=== PATIENT | female | born 1950 | race Caucasian/White ===

== ENCOUNTER 2016-11-06 08:18 | Day surgery (SDC) | payer MEDICARE ==
[~2016-11-06] VITALS: Ht 165.1 cm; Wt 90.7 kg
[~2016-11-06 08:18] MED LIST: ACET325T51 PO; ASPI-973 PO; CHOL5000 PO; CYAN250010 PO; DULO60CA61 PO; FLAX100010 PO; HYDR12.5 PO; IBUP200C PO; LOSA100T29 PO; Sodium Chloride LOK Flush 10 mL Syringe IV PRN; TRAZ-115 PO; fentaNYL-PF 50 mCg/mL 2 mL Inj IVPUSH PRN
[2016-11-06 08:57] VITALS: BP 121/78; PULSE 54; RESP 16; O2SAT 94
[2016-11-06] MEDS: 0.9% Sodium Chloride 1,000 ML IV SCH ×2 (09:00→09:56)
--- NOTE | 2016-11-06 09:27 | PCM.ENDCOL ---
Colonoscopy Date of Service: Nov 06, 2016 Physician Garett Tay MD Pre Procedure Diagnosis: Screening Post Procedure Dx & Findings: Polyps hemorrhoids diverticuli Procedure Colonoscopy PROCEDURE IN DETAIL: Prep adequate Withdrawal time 20 minutes After unremarkable rectal examination the Olympus video colonoscope was inserted patient's anal canal and was advanced to cecum. Landmarks were identified including the ileocecal valve and appendiceal orifice. Scope was withdrawn systematically. Visualized colonic mucosa showed healthy shiny mucosa with normal healthy-appearing vasculature. In the cecum, there were 2 polyps. There were about 1-2 mm in size. These were both removed completely using cold snare. In the ileocecal valve, there was a 1 mm polyp which was removed completely using cold forceps. These were placed in the same bottle labeled cecum. In the transverse colon, there was a 1 cm polyp in a very difficult angle. Snare used to resect it completely. 3 resolution clip deployed. In the sigmoid colon, there was a 3 mm polyp was removed completely using cold snare. In the sigmoid colon multiple diverticuli noted small to large.. In the rectum retroflexion was done which showed hemorrhoids. Anal canal was inspected carefully on the way out and hemorrhoids noted. Impression Polyp 5 status post complete removal. Largest one was 1 cm Diverticuli Hemorrhoids Recommendation Repeat colonoscopy 3 years Diverticular diet Presedation Assessment Risks and Benefits Informed consent was obtained from the patient after all risks and benefits including but not limited to drug reaction, infection, pain, bleeding, perforation, as well as alternatives were discussed. Patient monitoring Continuous pulse oximetry, cardiac monitoring, blood pressure monitoring, IV access, and oxygen at 2L per nasal cannula. Periprocedural Fentanyl: Fentanyl 150mcg Incrementally Midazolam: Midazolam 6mg Incrementally Complications There were no periprocedural complications identified. Post Procedure Plan Post Procedure Recommendations 1. Restrict activities today. 2. Resume normal activities in the morning. 3. Resume medications. 4. Patient informed of normal post procedure side effects as bloating, drowsiness, blood streaking in the stool. 5. average risk CRCS. If colon polyps come back as: -Hyperplastic- can repeat colonoscopy in 10 years -Tubular adenoma- repeat colonoscopy in 5 years -Tubulovillous/villous adenoma- repeat colonoscopy in 3 years -If any dysplasia- return to clinic as soon as possible 6. Please don't hesitate to call me with any questions. Garett Tay MD Nov 06, 2016 09:27
--- NOTE | 2016-11-06 10:08 | PCM.ENDCOL ---
Colonoscopy Date of Service: Nov 06, 2016 Physician Garett Tay MD Indication for Procedure Screening Pre Procedure Diagnosis: Screening Post Procedure Dx & Findings: Polyps hemorrhoids Procedure Colonoscopy PROCEDURE IN DETAIL: Prep adequate Withdrawal time 12 minutes After unremarkable rectal examination the Olympus video colonoscope was inserted patient's anal canal and was advanced to cecum. Landmarks were identified including the ileocecal valve and appendiceal orifice. Scope was withdrawn systematically. Visualized colonic mucosa showed healthy shiny mucosa with normal healthy-appearing vasculature. In the ascending colon there was a 3 mm polyp which was removed completely using cold snare. In the rectum retroflexion was done which showed hemorrhoids. Anal canal was inspected carefully on the way out and hemorrhoids noted. Impression Polyp 1 status post complete removal Hemorrhoids Recommendation Repeat colonoscopy 5 years Presedation Assessment Risks and Benefits Informed consent was obtained from the patient after all risks and benefits including but not limited to drug reaction, infection, pain, bleeding, perforation, as well as alternatives were discussed. Patient monitoring Continuous pulse oximetry, cardiac monitoring, blood pressure monitoring, IV access, and oxygen at 2L per nasal cannula. Periprocedural Fentanyl: Fentanyl 100mcg Incrementally Midazolam: Midazolam 5mg Incrementally Complications There were no periprocedural complications identified. Post Procedure Plan Post Procedure Recommendations 1. Restrict activities today. 2. Resume normal activities in the morning. 3. Resume medications. 4. Patient informed of normal post procedure side effects as bloating, drowsiness, blood streaking in the stool. 5. average risk CRCS. If colon polyps come back as: -Hyperplastic- can repeat colonoscopy in 10 years -Tubular adenoma- repeat colonoscopy in 5 years -Tubulovillous/villous adenoma- repeat colonoscopy in 3 years -If any dysplasia- return to clinic as soon as possible 6. Please don't hesitate to call me with any questions. Garett Tay MD Nov 06, 2016 10:08
[2016-11-06 10:10] VITALS: BP 110/72; PULSE 75; RESP 16; O2SAT 93
[2016-11-06 10:33] VITALS: BP 126/79; PULSE 64; RESP 16; O2SAT 97
--- NOTE | 2016-11-09 17:19 | PATH ---
SURGICAL PATHOLOGY Attending Physician:Garett Tay M.D. CASE STATUS: Signed Out PATIENT NAME: ZOHAIB HOWE PID: [id number] : 1950 DATE COLLECTED:11/06/2016 16:08 SPECIMEN: Colon, Biopsy CLINICAL HISTORY: 1. ASCENDING POLYP FINAL DIAGNOSIS: Ascending Colon, Polyp, Biopsy: Portion of tubular adenoma x1; negative for high-grade dysplasia. Superficial portions of colorectal mucosa x2 with no diagnostic abnormality. ICD10: K63.5 GROSS DESCRIPTION: The specimen is received in one formalin filled container labeled with the patient's name, sublabeled "ascending polyp" and consists of 3 portions of tissue which aggregate to 0.3 x 0.3 x 0.2 CM. The specimen is entirely submitted in one cassette 11/06/2016 DAC ICD-9 CODES: CPT CODES: 1: 63399 Electronically Signed Out Shantel Izquierdo MD [facility] [address], [place] [address] Technical component performed at [facility], [address] [place] [address] [address], [place], [address]
== END 2016-11-06 23:59 | disposition home or self-care (01) ==
LOC: END 08:18
PROVIDERS: ATTEND Internal Medicine
DX: Z12.11 Encounter for screening for malignant neoplasm of colon (principal); D12.0 Benign neoplasm of cecum; I10 Essential (primary) hypertension
CPT/HCPCS: 45385; G0500; J2250; J3010; J7030